=== PATIENT | female | born 1945 | race Hispanic/Latino ===

== ENCOUNTER → 2020-08-23 | Outpatient (CLI) | payer MEDICARE, OTHER ==
[~2020-08-23] MED LIST: ESOMEPRAZOLE PO; METO25TA6 PO; METOPROLOL TART PO; PRAV40TA3 PO
== END | disposition home or self-care (01) ==
LOC: RAH 09:53
PROVIDERS: ATTEND Internal Medicine Gastroenterology
DX: K44.9 Diaphragmatic hernia without obstruction or gangrene (principal); K21.9 Gastro-esophageal reflux disease without esophagitis
CPT/HCPCS: 74240

== ENCOUNTER 2023-07-19 05:45 | Day surgery (SDC) | payer OTHER ==
[2023-07-17 10:14] LABS: BASOPHILS # (AUTO) 0.03 K/uL (0.00-0.20); BASOPHILS % (AUTO) 0.5 % (0.0-5.0); EOSINOPHILS # (AUTO) 0.22 K/uL (0.00-0.70); EOSINOPHILS % (AUTO) 3.5 % (0.0-8.0); HEMATOCRIT 35.3 % (36-48); IMMATURE GRANULOCYTE ABSOLUTE 0.02 K/uL (0-1); LYMPHOCYTES # (AUTO) 1.3 K/uL (1.0-4.8); LYMPHOCYTES % (AUTO) 20.7 % (21.0-51.0); MEAN CORPUSCULAR HEMOGLOBIN 30.2 pg (27.0-33.0); MEAN CORPUSCULAR HGB CONC 32.6 g/dL (32.0-36.0); MEAN CORPUSCULAR VOLUME 92.7 fL (79-99); MONOCYTES # (AUTO) 0.6 K/uL (0.1-1.0); MONOCYTES % (AUTO) 9.5 % (3.0-13.0); NEUTROPHILS # (AUTO) 4.1 K/uL (1.8-7.7); NEUTROPHILS % (AUTO) 65.5 % (40.0-77.0); PLATELET COUNT (AUTO) 253 K/uL (130-400); RED BLOOD CELL COUNT(AUTO) 3.81 MIL/uL (4.00-5.50); WHITE BLOOD COUNT (AUTO) 6.3 K/uL (4.8-10.8)
[2023-07-17 10:27] LABS: ALBUMIN 3.3 g/dL (3.5-5.0); BILIRUBIN,TOTAL 0.7 mg/dL (0.2-1.0); CREATININE 0.7 mg/dL (0.5-1.5); POTASSIUM 3.6 mmol/L (3.5-5.1); TOTAL PROTEIN, SERUM 6.9 g/dL (6.0-8.3)
[2023-07-17 10:54] VITALS: BP 137/60; PULSE 68; RESP 18
[~2023-07-19] VITALS: Ht 152.4 cm; Wt 47.9 kg
[2023-07-19] VITALS (7 sets, daily range): BP systolic 126–159; BP diastolic 58–81; PULSE 71–83; RESP 14–18
[~2023-07-19 05:45] MED LIST changes: +APIX5TAB PO; -ESOMEPRAZOLE PO; -METO25TA6 PO; -METOPROLOL TART PO; +PIND5 PO; -PRAV40TA3 PO; +PROP60TA20 PO; +ROSU5TAB12 PO
[2023-07-19] MEDS ORDERED: 0.9%NACL 1000ML 1,000 ML IV ONE (06:21)
[2023-07-19] MEDS ORDERED: LIDOCAINE HCL 1% MDV 50ML VIAL ONE (07:16)
[2023-07-19] MEDS ORDERED: BUPIVACAINE/PF 0.25% 30ML VIAL IJ ONE (07:41)
[2023-07-19] MEDS ORDERED: MEPERIDINE-PF 25 MG/ML SYG ONE (07:44)
[2023-07-19] MEDS ORDERED: MIDAZOLAM HCL 1 MG/ML 2ML VIAL ONE (07:44)
[2023-07-19] MEDS ORDERED: BACITRACIN 1 EACH PACKET TP ONE (08:06)
[2023-07-19] MEDS ORDERED: ACETAMINOPHEN 500 MG TABLET PO PRN (08:30)
== END 2023-07-19 10:05 | disposition home or self-care (01) ==
LOC: DAH 05:45
PROVIDERS: ATTEND Internal Medicine Cardiovascular Disease
DX: I48.0 Paroxysmal atrial fibrillation (principal); I95.1 Orthostatic hypotension; I10 Essential (primary) hypertension; E78.5 Hyperlipidemia, unspecified; I25.2 Old myocardial infarction; Z86.16 Personal history of COVID-19; Z98.890 Other specified postprocedural states; Z79.899 Other long term (current) drug therapy
CPT/HCPCS: 80053; 85025; 36415; 93005; 33285; 33286; A4649; C1764; J7030; J0665; J2250; J2175; J3490; A4215; A4222; A4221; A4663; A4216; A4606; A4223 ×3; 99156; 99157

== ENCOUNTER → 2024-09-08 | Outpatient (CLI) | payer OTHER ==
[~2024-09-08] MED LIST changes: -ROSU5TAB12 PO; +ROSU5TAB51 PO
--- NOTE | 2024-09-11 09:33 | HMCSR ---
APPROVED REPORT EXAM: Two-dimensional and M-mode echocardiogram with Doppler and color Doppler. INDICATION ICD: I48.0 2D Dimensions RVDd3.0 cmLVEF(%)51.5 (>50%)LVED Vol(simp.)77.0 mL IVSd0.8 (0.7-1.1cm)FS(%)26 %LVES Vol(simp.)39.0 mL LVDd3.9 (3.8-5.6cm)Ao Root(2D)2.5 (2.0-3.7cm)LVEF(%, simp.)50 % PWd0.9 (0.7-1.1cm)LVOT diam1.9 (1.8-2.4cm)LA ESV INDEX (BP)42.53 mL/m2 LVDs2.9 (2.5-4.0cm)IVC diam1.7 cm Aortic Valve AoV Vmax1.2 m/Zackary Peak GR6.2 mmHgLVOT Vmax0.7 m/s AoV VTI0.3 mAo Mean GR3.5 mmHgLVOT VTI0.18 m JOSÉ (VMAX)1.6 cm2AVA (VTI) 1.6 cm2 Mitral Valve MV E Atgu548.0 cm/sDECEL Twuk653 ms MV A Vmax65.4 cm/sP 1/2 T47 ms E/A ratio1.7MVA (PHT)4.6 cm2 MR Max PG76 mmHg TDI E/E' Vhhhrq30.4E/E' Jllddks36.2 Pulmonary Valve PV Vmax0.7 m/sPV VTI0.18 mPV Mean GR1 mmHg PV Peak GR2.1 mmHgPI End Laida. Osmin 1.2 cm/s Tricuspid Valve TR Vmax3.3 m/sRAP (EST) 3 lmCdNTYM93.8 mmHg TR Peak GR42.8 mmHg Left Ventricle The left ventricle structure is normal. There is normal left ventricular wall thickness. Left ventric le systolic function is low normal. The Ejection Fraction is 50-55%. Grade 2 diastolic dysfunction. Right Ventricle The right ventricle is normal size. The right ventricular systolic function is normal. Device lead is present in the right ventricle. Atria The left atrium is moderately dilated. The right atrium is mildly dilated. Aortic Valve There is mild calcification of the aortic valve leaflets. No aortic stenosis. Trace aortic regurgitat ion. Calculated aortic valve area is 1.6 cm2 with maximum pressure gradient of 6.2 mmHg and mean pres sure gradient of 3.5 mmHg. Mitral Valve The mitral valve is mildly thickened. Mitral annular calcification is mild. Mitral regurgitation is t race to mild. There is no mitral valve stenosis. Tricuspid Valve The tricuspid valve leaflets appear normal. There is mild to moderate tricuspid regurgitation. Right ventricular systolic pressure is estimated at 40-50 mmHg. Pulmonic Valve Pulmonic valve is not well visualized. There is trace valvular regurgitation. Great Vessels The aortic root is normal in size. The IVC is normal in size and collapses >50% with inspiration. Pericardium No pericardial effusion. Conclusion Left ventricle systolic function is low normal. The Ejection Fraction is 50-55%. Grade 2 diastolic dysfunction. Device lead is present in the right ventricle. The left atrium is moderately dilated. The right atrium is mildly dilated. Trace aortic regurgitation. There is mild calcification of the aortic valve leaflets. No aortic stenosis. The mitral valve is mildly thickened. Mitral annular calcification is mild. Mitral regurgitation is trace to mild. There is mild to moderate tricuspid regurgitation. Right ventricular systolic pressure is estimated at 40-50 mmHg. There is trace valvular regurgitation.
== END | disposition home or self-care (01) ==
LOC: SHCH 09:16
PROVIDERS: ATTEND Internal Medicine Cardiovascular Disease
DX: I08.3 Combined rheumatic disorders of mitral, aortic and tricuspid valves (principal); I48.0 Paroxysmal atrial fibrillation
CPT/HCPCS: 93306